=== PATIENT | male | born 1955 | race Caucasian/White ===

== ENCOUNTER 2017-07-12 02:09 | Inpatient (IN) | payer OTHER ==
[2017-07-12] MEDS ORDERED: ALBUTEROL/IPRATROPIUM (NEB) 3 ML AMP HHN ×2 (04:00→04:30)
[2017-07-12] MEDS ORDERED: morphine 2 MG INJ IV (07:00)
[2017-07-12] MEDS ORDERED: ONDANSETRON 4 MG INJ IV (07:00)
[2017-07-12] MEDS ORDERED: NITROGLYCERIN (SL) 0.4 MG TAB SL (07:00)
[2017-07-12] MEDS ORDERED: ACETAMINOPHEN 325 MG TAB PO (07:00)
[2017-07-12] MEDS ORDERED: NACL 0.9% 3 ML SYG IV (07:00)
[2017-07-12 08:13] LABS: ADD MAN DIFF? NO
[2017-07-12 08:15] LABS: WHITE BLOOD COUNT 4.6 10^3/ul (4.8-10.8)
[2017-07-12 08:15] LABS: HEMATOCRIT 37.3 % (42.0-52.0); HEMOGLOBIN 12.5 g/dl (14.0-18.0); LYMPHOCYTES # 0.6 10^3/ul (0.8-2.9); LYMPHOCYTES % 13.9 % (15.0-51.0); MEAN CORPUSCULAR HEMOGLOBIN 30.9 pg (29.0-33.0); MEAN CORPUSCULAR HGB CONC 33.5 g/dl (32.0-37.0); MEAN CORPUSCULAR VOLUME 92.1 fl (82.0-101.0); MEAN PLATELET VOLUME 10.8 fl (7.4-10.4); MONOCYTE # 0.1 10^3/ul (0.3-0.9); MONOCYTES % 2.2 % (0.0-11.0); NEUTROPHIL # 3.9 10^3/ul (1.6-7.5); NEUTROPHILS % 83.7 % (39.0-77.0); PLATELET COUNT 293 10^3/UL (140-415); RED BLOOD COUNT 4.05 10^6/ul (4.70-6.10); RED CELL DISTRIBUTION WIDTH 14.4 % (11.5-14.5)
[2017-07-12 08:45] LABS: ALANINE AMINOTRANSFERASE 34 IU/L (13-69); ALBUMIN 3.8 g/dl (3.3-4.9); ALKALINE PHOSPHATASE 99 IU/L (42-121); ANION GAP 19 (8-16); ASPARTATE AMINO TRANSFERASE 38 IU/L (15-46); BILIRUBIN,INDIRECT 0.3 mg/dl (0-1.1); BILIRUBIN,TOTAL 0.3 mg/dl (0.2-1.3); BLOOD UREA NITROGEN 28 mg/dl (7-20); CALCIUM 8.9 mg/dl (8.4-10.2); CARBON DIOXIDE 20 mmol/L (21-31); CHLORIDE 109 mmol/L (97-110); CHOL/HDL RATIO 2.6 RATIO; CHOLESTEROL 133 mg/dl (100-200); CREATININE 1.34 mg/dl (0.61-1.24); GLUCOSE 184 mg/dl (70-220); HDL CHOLESTEROL 50 mg/dl (30-78); LDL CHOLESTEROL,CALCULATED 66 mg/dl; MAGNESIUM 1.9 mg/dl (1.7-2.5); PHOSPHORUS 3.5 mg/dl (2.5-4.9); POTASSIUM 4.5 mmol/L (3.5-5.1); SODIUM 143 mmol/L (135-144); TOTAL PROTEIN 7.6 g/dl (6.1-8.1); TRIGLYCERIDES 86 mg/dl (0-149)
[2017-07-12 08:55] LABS: HEMOGLOBIN A1C 5.8 % (0-5.9)
[2017-07-12] MEDS: LORAZEPAM 0.5 MG TAB PO ×2 (09:10→18:34)
[2017-07-12] MEDS: ASPIRIN 81 MG TAB PO (09:10)
[2017-07-12] MEDS: MOMETASONE 0.24 GM INHALER INH ×2 (09:11→21:26)
[2017-07-12] MEDS: LISINOPRIL 20 MG TAB PO (09:11)
[2017-07-12] MEDS: PANTOPRAZOLE (EC) 40 MG TAB PO (09:16)
[2017-07-12] MEDS: HEPARIN 5,000 UNIT/0.5 ML VIAL SC ×2 (09:23→21:42)
[2017-07-12] MEDS: TAMSULOSIN (SR) 0.4 MG CAP PO (21:27)
[2017-07-12] MEDS: CEFTRIAXONE 1 GM/50 ML (PMX) 50 ML IVPB (21:50)
[2017-07-12] MEDS: AZITHROMYCIN 500MG/NS (PMX) 250 ML IVPB (22:45)
[2017-07-13] MEDS: METHOCARBAMOL 500 MG TAB PO (00:27)
[2017-07-13] MEDS: LORAZEPAM 0.5 MG TAB PO ×3 (02:01→23:05)
[2017-07-13] MEDS: LORAZEPAM 2 MG INJ IV (06:11)
[2017-07-13] MEDS: SODIUM CHLORIDE 0.9% 500 ML BAG IV (06:11)
[2017-07-13] MEDS: PANTOPRAZOLE (EC) 40 MG TAB PO (06:11)
[2017-07-13] MEDS: PROPRANOLOL 20 MG TAB PO (06:11)
[2017-07-13] MEDS ORDERED: ROCURONIUM 50 MG INJ (07:00)
[2017-07-13] MEDS ORDERED: EPINEPHrine 0.1 MG/ML SYG (07:00)
[2017-07-13] MEDS ORDERED: ADENOSINE 3 MG/ML SYRINGE IV (07:00)
[2017-07-13] MEDS ORDERED: NA BICARBONATE 8.4% 50 ML SYG (07:00)
[2017-07-13] MEDS ORDERED: ATROPINE 1 MG/10 ML SYRINGE (07:00)
[2017-07-13 08:05] LABS: ADD MAN DIFF? NO
[2017-07-13 08:11] LABS: BASOPHILS % 0.1 % (0.0-2.0); EOSINOPHILS % 0.4 % (0.0-7.0); HEMATOCRIT 33.7 % (42.0-52.0); HEMOGLOBIN 11.4 g/dl (14.0-18.0); MEAN CORPUSCULAR HEMOGLOBIN 31.1 pg (29.0-33.0); MEAN CORPUSCULAR HGB CONC 33.8 g/dl (32.0-37.0); MEAN CORPUSCULAR VOLUME 92.1 fl (82.0-101.0); MEAN PLATELET VOLUME 10.9 fl (7.4-10.4); MONOCYTE # 0.6 10^3/ul (0.3-0.9); MONOCYTES % 7.3 % (0.0-11.0); NEUTROPHIL # 5.3 10^3/ul (1.6-7.5); NEUTROPHILS % 66.7 % (39.0-77.0); PLATELET COUNT 270 10^3/UL (140-415); RED BLOOD COUNT 3.66 10^6/ul (4.70-6.10); RED CELL DISTRIBUTION WIDTH 14.1 % (11.5-14.5)
[2017-07-13 08:11] LABS: WHITE BLOOD COUNT 7.9 10^3/ul (4.8-10.8)
[2017-07-13 08:24] LABS: HEMOGLOBIN A1C 5.9 % (0-5.9)
[2017-07-13 08:44] LABS: ALANINE AMINOTRANSFERASE 36 IU/L (13-69); ALBUMIN 3.2 g/dl (3.3-4.9); ALBUMIN/GLOBULIN RATIO 0.91; ALKALINE PHOSPHATASE 86 IU/L (42-121); ANION GAP 16 (8-16); ASPARTATE AMINO TRANSFERASE 29 IU/L (15-46); BILIRUBIN,INDIRECT 0.5 mg/dl (0-1.1); BILIRUBIN,TOTAL 0.5 mg/dl (0.2-1.3); BLOOD UREA NITROGEN 33 mg/dl (7-20); CALCIUM 8.4 mg/dl (8.4-10.2); CARBON DIOXIDE 20 mmol/L (21-31); CHLORIDE 108 mmol/L (97-110); CHOL/HDL RATIO 2.9 RATIO; CHOLESTEROL 115 mg/dl (100-200); CREATININE 1.24 mg/dl (0.61-1.24); GLUCOSE 127 mg/dl (70-220); HDL CHOLESTEROL 39 mg/dl (30-78); LDL CHOLESTEROL,CALCULATED 46 mg/dl; MAGNESIUM 1.9 mg/dl (1.7-2.5); POTASSIUM 3.9 mmol/L (3.5-5.1); SODIUM 140 mmol/L (135-144); TOTAL PROTEIN 6.7 g/dl (6.1-8.1); TRIGLYCERIDES 150 mg/dl (0-149)
[2017-07-13 08:47] LABS: INR 1.05; PARTIAL THROMBOPLASTIN TIME 24.7 Sec (25.0-35.0); PROTIME 13.8 Sec (11.9-14.9); PT RATIO 1.1
[2017-07-13] MEDS: ASPIRIN 81 MG TAB PO (09:00)
[2017-07-13] MEDS: LISINOPRIL 20 MG TAB PO (09:00)
[2017-07-13] MEDS: MOMETASONE 0.24 GM INHALER INH ×2 (09:00→21:44)
[2017-07-13] MEDS: HEPARIN 5,000 UNIT/0.5 ML VIAL SC ×2 (09:00→21:57)
[2017-07-13] MEDS: CEFTRIAXONE 1 GM/50 ML (PMX) 50 ML IVPB (21:43)
[2017-07-13] MEDS: ATORVASTATIN 20 MG TAB PO (21:44)
[2017-07-13] MEDS: TAMSULOSIN (SR) 0.4 MG CAP PO (21:44)
[2017-07-13] MEDS: CHLORDIAZEPOXIDE 25 MG CAP PO (21:45)
[2017-07-13] MEDS: AZITHROMYCIN 500MG/NS (PMX) 250 ML IVPB (23:03)
[2017-07-13] MEDS: AMIODARONE 150MG/D5W BOLUS 100 ML IV (23:30)
[2017-07-13] MEDS ORDERED: AMIODARONE 900 MG in DEXTROSE 5% 482 ML IV (23:40)
[2017-07-14] MEDS ORDERED: LORAZEPAM 2 MG INJ (00:11)
[2017-07-14] MEDS: LORAZEPAM 2 MG INJ IV ×2 (00:30→04:19)
[2017-07-14] MEDS: PROPOFOL 100 ML IV ×4 (01:30→16:54)
[2017-07-14] MEDS: PANTOPRAZOLE (EC) 40 MG TAB PO (02:13)
[2017-07-14] MEDS: SOD CHLORIDE 0.9% 1,000 ML IV ×2 (02:21→08:38)
[2017-07-14] MEDS: NORepinephrine 8MG/250 ML (PMX 250 ML IV (02:22)
[2017-07-14 03:05] LABS: AADO2 Arterial 473.8 mmHg (7.0-24.0); Allen Test ACCEPTAB; Arterial Base Excess -12.6 mmol/L (-3.0-3); Arterial Blood Gas Oxygen Sat 98.8 mmHG (95.0-98.0); Arterial COHb 0.6 % (0.0-3.0); Arterial Fraction of Oxyhgb 97.9 % (93.0-99.0); Arterial HCO3 14.5 mmol/L (22.0-26.0); Arterial MetHb 0.3 % (0.0-1.5); Arterial Total Hemglobin 15.2 g/dl (12.0-18.0); Arterial pCO2 37.2 mmhg (35-45); MODE VENT - AC; Site Right Radial
[2017-07-14 03:12] LABS: Allen Test ACCEPTAB; Arterial Blood Gas Oxygen Sat 98.9 mmHG (95.0-98.0); Arterial COHb 0.3 % (0.0-3.0); Arterial Fraction of Oxyhgb 98.5 % (93.0-99.0); Arterial HCO3 16.1 mmol/L (22.0-26.0); Arterial MetHb 0.1 % (0.0-1.5); Arterial Total Hemglobin 12.8 g/dl (12.0-18.0); Arterial pCO2 23.6 mmhg (35-45); MODE MASK - NRB; Site Right Radial
[2017-07-14] MEDS: VASOPRESSIN 60 UNIT in DEXTROSE 5% 57 ML IV ×2 (03:30→14:30)
[2017-07-14] MEDS ORDERED: DOPamine-D5W 1.6 MG/ML 250 ML (04:10)
[2017-07-14] MEDS: SOD CHLORIDE 0.9% 500 ML IV (04:20)
[2017-07-14] MEDS: PHENYLephrine 40 MG in DEXTROSE 5% 496 ML IV ×3 (04:23→08:36)
[2017-07-14] MEDS: DOPamine-D5W 1.6 MG/ML 250 ML IV ×4 (04:34→23:26)
[2017-07-14] MEDS ORDERED: EPINEPHrine 0.1 MG/ML SYG (04:57)
[2017-07-14] MEDS: EPINEPHRINE IV (05:19)
[2017-07-14] MEDS: SOD CHLORIDE 0.9% IV (05:19)
[2017-07-14 06:04] LABS: ADD MAN DIFF? NO; BASOPHILS % 0.2 % (0.0-2.0); EOSINOPHILS % 0.1 % (0.0-7.0); HEMOGLOBIN 12.7 g/dl (14.0-18.0); LYMPHOCYTES # 1.6 10^3/ul (0.8-2.9); LYMPHOCYTES % 8.8 % (15.0-51.0); MEAN CORPUSCULAR HEMOGLOBIN 30.8 pg (29.0-33.0); MEAN CORPUSCULAR HGB CONC 32.6 g/dl (32.0-37.0); MEAN CORPUSCULAR VOLUME 94.7 fl (82.0-101.0); MEAN PLATELET VOLUME 11.4 fl (7.4-10.4); MONOCYTE # 1.4 10^3/ul (0.3-0.9); MONOCYTES % 7.7 % (0.0-11.0); NEUTROPHIL # 14.4 10^3/ul (1.6-7.5); NEUTROPHILS % 81.3 % (39.0-77.0); NUCLEATED RED BLOOD CELLS% 0.1 /100WBC (0.0-0.0); PLATELET COUNT 215 10^3/UL (140-415); RED BLOOD COUNT 4.12 10^6/ul (4.70-6.10); RED CELL DISTRIBUTION WIDTH 14.2 % (11.5-14.5)
[2017-07-14 06:04] LABS: WHITE BLOOD COUNT 17.7 10^3/ul (4.8-10.8)
[2017-07-14 06:22] LABS: ANION GAP 25 (8-16); BLOOD UREA NITROGEN 38 mg/dl (7-20); CALCIUM 7.2 mg/dl (8.4-10.2); CARBON DIOXIDE 14 mmol/L (21-31); CHLORIDE 109 mmol/L (97-110); CREATININE 1.79 mg/dl (0.61-1.24); GLUCOSE 143 mg/dl (70-220); MAGNESIUM 2.2 mg/dl (1.7-2.5); POTASSIUM 5.1 mmol/L (3.5-5.1); SODIUM 143 mmol/L (135-144)
[2017-07-14 08:36] LABS: AADO2 Arterial 605.3 mmHg (7.0-24.0); Arterial Base Excess -10.9 mmol/L (-3.0-3); Arterial Blood Gas Oxygen Sat 82.9 mmHG (95.0-98.0); Arterial COHb 0.4 % (0.0-3.0); Arterial Fraction of Oxyhgb 82.4 % (93.0-99.0); Arterial HCO3 16.8 mmol/L (22.0-26.0); Arterial MetHb 0.2 % (0.0-1.5); Arterial Total Hemglobin 13.1 g/dl (12.0-18.0); Arterial pCO2 44.3 mmhg (35-45); MODE VENT - AC; Site Right Brachial
[2017-07-14] MEDS: MOMETASONE 0.24 GM INHALER INH ×2 (09:00→20:56)
[2017-07-14] MEDS ORDERED: HEPARIN 1000 UNITS/ML 10 ML INJ IV ×2 (09:00)
[2017-07-14] MEDS: CHLORDIAZEPOXIDE 25 MG CAP PO ×3 (09:00→23:20)
[2017-07-14] MEDS: ASPIRIN 81 MG TAB PO (09:00)
[2017-07-14] MEDS ORDERED: MULTIVITAMINS 10 ML, THIAMINE 100 MG, FOLIC ACID 1 MG in SOD CHLORIDE 0.9% 1,000 ML IVPB (09:00)
[2017-07-14] MEDS: HEPARIN 5,000 UNIT/0.5 ML VIAL SC (09:00)
[2017-07-14] MEDS: LEVOFLOXACIN 500MG/D5W (PMX) 100 ML IVPB (09:17)
[2017-07-14 09:31] LABS: CREATINE KINASE 598 IU/L (23-200)
[2017-07-14 09:34] LABS: LACTIC ACID 4.4 mmol/L (0.5-2.0)
[2017-07-14 09:43] LABS: CK INDEX 1.1
[2017-07-14 09:45] LABS: CK-MB 6.84 ng/ml (0.0-2.4)
[2017-07-14 09:47] LABS: TROPONIN-I 0.548 ng/ml (0.00-0.12)
[2017-07-14] MEDS: NA BICARBONATE 8.4% 50 ML SYG IV (09:54)
[2017-07-14] MEDS: SODIUM BICARBONATE (IV ADD) 100 MEQ in DEXTROSE 5% 1,000 ML IV (12:09)
[2017-07-14 12:13] LABS: ADD MAN DIFF? NO
[2017-07-14 12:18] LABS: WHITE BLOOD COUNT 23.7 10^3/ul (4.8-10.8)
[2017-07-14 12:18] LABS: ABNORMAL IP MESSAGE 1; BASOPHILS % 0.1 % (0.0-2.0); HEMATOCRIT 37.1 % (42.0-52.0); HEMOGLOBIN 12.4 g/dl (14.0-18.0); LYMPHOCYTES # 0.7 10^3/ul (0.8-2.9); LYMPHOCYTES % 2.7 % (15.0-51.0); MEAN CORPUSCULAR HEMOGLOBIN 31.3 pg (29.0-33.0); MEAN CORPUSCULAR HGB CONC 33.4 g/dl (32.0-37.0); MEAN CORPUSCULAR VOLUME 93.7 fl (82.0-101.0); MEAN PLATELET VOLUME 10.7 fl (7.4-10.4); MONOCYTE # 1.1 10^3/ul (0.3-0.9); MONOCYTES % 4.7 % (0.0-11.0); NEUTROPHIL # 21.6 10^3/ul (1.6-7.5); NEUTROPHILS % 91.2 % (39.0-77.0); PLATELET COUNT 223 10^3/UL (140-415); POSITIVE DIFF @See below; RED BLOOD COUNT 3.96 10^6/ul (4.70-6.10); RED CELL DISTRIBUTION WIDTH 13.7 % (11.5-14.5)
[2017-07-14] MEDS: SOD CHLORIDE 0.9% 100 ML (12:25)
[2017-07-14 12:40] LABS: CREATINE KINASE 684 IU/L (23-200)
[2017-07-14 12:48] LABS: PROTIME 26.8 Sec (11.9-14.9); PT RATIO 2.1
[2017-07-14 12:49] LABS: PARTIAL THROMBOPLASTIN TIME 38.1 Sec (25.0-35.0)
[2017-07-14 12:52] LABS: CK INDEX 1.1; CK-MB 7.68 ng/ml (0.0-2.4); TROPONIN-I 0.892 ng/ml (0.00-0.12)
[2017-07-14] MEDS: HEPARIN 1000 UNITS/ML 10 ML INJ IV (13:05)
[2017-07-14] MEDS: HEPARIN 25000 UNITS/250 ML 250 ML IV (13:07)
[2017-07-14] MEDS: PIPER-TAZO 3.375 GM IV (PMX) 100 ML IVPB ×2 (15:21→20:05)
[2017-07-14 19:27] LABS: CREATINE KINASE 771 IU/L (23-200)
[2017-07-14 19:35] LABS: PARTIAL THROMBOPLASTIN TIME 77.7 Sec (25.0-35.0)
[2017-07-14 19:41] LABS: CK INDEX 1.1
[2017-07-14 19:42] LABS: CK-MB 8.26 ng/ml (0.0-2.4)
[2017-07-14] MEDS: TAMSULOSIN (SR) 0.4 MG CAP PO (21:00)
[2017-07-14] MEDS: ATORVASTATIN 20 MG TAB PO (23:20)
[2017-07-15 02:21] LABS: PARTIAL THROMBOPLASTIN TIME 72.2 Sec (25.0-35.0)
[2017-07-15] MEDS: PROPOFOL 100 ML IV ×4 (02:27→20:02)
[2017-07-15] MEDS: VASOPRESSIN 60 UNIT in DEXTROSE 5% 57 ML IV ×2 (02:30→13:43)
[2017-07-15 05:32] LABS: ADD MAN DIFF? NO; BASOPHILS % 0.1 % (0.0-2.0); HEMATOCRIT 33.7 % (42.0-52.0); HEMOGLOBIN 11.4 g/dl (14.0-18.0); LYMPHOCYTES # 1.9 10^3/ul (0.8-2.9); MEAN CORPUSCULAR HEMOGLOBIN 30.7 pg (29.0-33.0); MEAN CORPUSCULAR HGB CONC 33.8 g/dl (32.0-37.0); MEAN CORPUSCULAR VOLUME 90.8 fl (82.0-101.0); MEAN PLATELET VOLUME 11.3 fl (7.4-10.4); MONOCYTE # 0.7 10^3/ul (0.3-0.9); MONOCYTES % 4.8 % (0.0-11.0); NEUTROPHIL # 11.9 10^3/ul (1.6-7.5); NEUTROPHILS % 81.6 % (39.0-77.0); PLATELET COUNT 192 10^3/UL (140-415); RED BLOOD COUNT 3.71 10^6/ul (4.70-6.10); RED CELL DISTRIBUTION WIDTH 14.4 % (11.5-14.5)
[2017-07-15 05:32] LABS: WHITE BLOOD COUNT 14.6 10^3/ul (4.8-10.8)
[2017-07-15] MEDS: LANSOPRAZOLE 30 MG CAP NGT (05:40)
[2017-07-15] MEDS: PIPER-TAZO 3.375 GM IV (PMX) 100 ML IVPB ×3 (05:40→12:26)
[2017-07-15 06:06] LABS: PARTIAL THROMBOPLASTIN TIME 66.7 Sec (25.0-35.0)
[2017-07-15 06:08] LABS: ANION GAP 18 (8-16); BLOOD UREA NITROGEN 56 mg/dl (7-20); CALCIUM 6.3 mg/dl (8.4-10.2); CARBON DIOXIDE 21 mmol/L (21-31); CHLORIDE 99 mmol/L (97-110); CREATININE 3.47 mg/dl (0.61-1.24); GLUCOSE 153 mg/dl (70-220); POTASSIUM 4.3 mmol/L (3.5-5.1); SODIUM 134 mmol/L (135-144)
[2017-07-15 07:39] LABS: AADO2 Arterial 308.5 mmHg (7.0-24.0); Arterial Base Excess -4.4 mmol/L (-3.0-3); Arterial Blood Gas Oxygen Sat 95.7 mmHG (95.0-98.0); Arterial COHb 0.2 % (0.0-3.0); Arterial Fraction of Oxyhgb 95.3 % (93.0-99.0); Arterial HCO3 18.4 mmol/L (22.0-26.0); Arterial MetHb 0.2 % (0.0-1.5); Arterial pCO2 27.4 mmhg (35-45); MODE VENT - AC; Site Right Brachial
[2017-07-15] MEDS: SODIUM BICARBONATE (IV ADD) 100 MEQ in DEXTROSE 5% 1,000 ML IV ×2 (08:30→11:30)
[2017-07-15] MEDS: MOMETASONE 0.24 GM INHALER INH ×2 (09:00→20:35)
[2017-07-15] MEDS: CHLORDIAZEPOXIDE 25 MG CAP PO ×2 (09:44→13:11)
[2017-07-15] MEDS: ASPIRIN 81 MG TAB PO (09:45)
[2017-07-15] MEDS: ENOXAPARIN 30 MG/0.3 ML SYG SC (09:46)
[2017-07-15] MEDS: DOPamine-D5W 1.6 MG/ML 250 ML IV (10:53)
[2017-07-15] MEDS: LINEZOLID 600 MG/D5W (PMX) 300 ML IVPB ×2 (11:21→20:02)
[2017-07-15 11:47] LABS: PARTIAL THROMBOPLASTIN TIME 45.4 Sec (25.0-35.0)
[2017-07-15] MEDS: FUROSEMIDE 40 MG INJ IV (17:56)
[2017-07-15] MEDS: ATORVASTATIN 20 MG TAB PO (20:02)
[2017-07-15] MEDS: TAMSULOSIN (SR) 0.4 MG CAP PO (20:36)
[2017-07-15] MEDS: PIPER-TAZO 2.25 GM (PMX) 50 ML IVPB (21:13)
[2017-07-15] MEDS: AMIODARONE 150MG/D5W BOLUS 100 ML IV (23:19)
[2017-07-15] MEDS: AMIODARONE 900 MG in DEXTROSE 5% 482 ML IV (23:53)
[2017-07-16] MEDS: VASOPRESSIN 60 UNIT in DEXTROSE 5% 57 ML IV ×2 (01:37→14:30)
[2017-07-16 04:57] LABS: ADD MAN DIFF? NO
[2017-07-16 05:02] LABS: BASOPHILS % 0.2 % (0.0-2.0); EOSINOPHILS % 0.3 % (0.0-7.0); HEMATOCRIT 33.8 % (42.0-52.0); HEMOGLOBIN 11.7 g/dl (14.0-18.0); LYMPHOCYTES # 1.3 10^3/ul (0.8-2.9); LYMPHOCYTES % 8.7 % (15.0-51.0); MEAN CORPUSCULAR HEMOGLOBIN 31.1 pg (29.0-33.0); MEAN CORPUSCULAR HGB CONC 34.6 g/dl (32.0-37.0); MEAN CORPUSCULAR VOLUME 89.9 fl (82.0-101.0); MEAN PLATELET VOLUME 11.3 fl (7.4-10.4); MONOCYTE # 0.7 10^3/ul (0.3-0.9); MONOCYTES % 4.6 % (0.0-11.0); NEUTROPHIL # 12.9 10^3/ul (1.6-7.5); NEUTROPHILS % 85.5 % (39.0-77.0); PLATELET COUNT 231 10^3/UL (140-415); RED BLOOD COUNT 3.76 10^6/ul (4.70-6.10); RED CELL DISTRIBUTION WIDTH 14.5 % (11.5-14.5)
[2017-07-16 05:02] LABS: WHITE BLOOD COUNT 15.1 10^3/ul (4.8-10.8)
[2017-07-16 05:25] LABS: ANION GAP 20 (8-16); BLOOD UREA NITROGEN 69 mg/dl (7-20); CALCIUM 6.2 mg/dl (8.4-10.2); CARBON DIOXIDE 21 mmol/L (21-31); CHLORIDE 94 mmol/L (97-110); CREATININE 5.03 mg/dl (0.61-1.24); GLUCOSE 169 mg/dl (70-220); POTASSIUM 3.9 mmol/L (3.5-5.1); SODIUM 131 mmol/L (135-144)
[2017-07-16] MEDS: PIPER-TAZO 2.25 GM (PMX) 50 ML IVPB ×2 (05:26→13:56)
[2017-07-16] MEDS: LANSOPRAZOLE 30 MG CAP NGT (05:26)
[2017-07-16] MEDS: PROPOFOL 100 ML IV ×3 (05:26→14:42)
[2017-07-16] MEDS: SODIUM BICARBONATE (IV ADD) 100 MEQ in DEXTROSE 5% 1,000 ML IV ×2 (05:33→09:25)
[2017-07-16] MEDS: MOMETASONE 0.24 GM INHALER INH ×2 (09:00→21:00)
[2017-07-16 09:02] LABS: AADO2 Arterial 337.2 mmHg (7.0-24.0); Allen Test ACCEPTAB; Arterial Base Excess -4.9 mmol/L (-3.0-3); Arterial Blood Gas Oxygen Sat 82.6 mmHG (95.0-98.0); Arterial COHb 0.3 % (0.0-3.0); Arterial Fraction of Oxyhgb 82.3 % (93.0-99.0); Arterial HCO3 19.1 mmol/L (22.0-26.0); Arterial MetHb 0.1 % (0.0-1.5); Arterial Total Hemglobin 12.6 g/dl (12.0-18.0); Arterial pCO2 32.5 mmhg (35-45); MODE VENT - AC; Site Right Radial
[2017-07-16] MEDS: ASPIRIN 81 MG TAB PO (10:27)
[2017-07-16] MEDS: FUROSEMIDE 40 MG INJ IV (10:27)
[2017-07-16] MEDS: LINEZOLID 600 MG/D5W (PMX) 300 ML IVPB ×2 (10:28→22:45)
[2017-07-16] MEDS: ENOXAPARIN 30 MG/0.3 ML SYG SC (10:33)
[2017-07-16] MEDS: DOPamine-D5W 1.6 MG/ML 250 ML IV (17:40)
[2017-07-16] MEDS: ATORVASTATIN 20 MG TAB PO (22:45)
[2017-07-16] MEDS: TAMSULOSIN (SR) 0.4 MG CAP PO (22:45)
[2017-07-17] MEDS: PROPOFOL 100 ML IV ×2 (01:31→06:21)
[2017-07-17] MEDS: VASOPRESSIN 60 UNIT in DEXTROSE 5% 57 ML IV (02:30)
[2017-07-17] MEDS: PIPER-TAZO 2.25 GM (PMX) 50 ML IVPB ×2 (02:54→05:34)
[2017-07-17] MEDS: LANSOPRAZOLE 30 MG CAP NGT (05:33)
[2017-07-17 05:54] LABS: ADD MAN DIFF? NO
[2017-07-17 06:15] LABS: BASOPHILS % 0.2 % (0.0-2.0); EOSINOPHILS # 0.1 10^3/ul (0.0-0.5); EOSINOPHILS % 0.5 % (0.0-7.0); HEMATOCRIT 31.9 % (42.0-52.0); HEMOGLOBIN 11.3 g/dl (14.0-18.0); LYMPHOCYTES # 0.8 10^3/ul (0.8-2.9); LYMPHOCYTES % 6.5 % (15.0-51.0); MEAN CORPUSCULAR HGB CONC 35.4 g/dl (32.0-37.0); MEAN CORPUSCULAR VOLUME 87.4 fl (82.0-101.0); MEAN PLATELET VOLUME 11.2 fl (7.4-10.4); MONOCYTE # 0.7 10^3/ul (0.3-0.9); MONOCYTES % 5.6 % (0.0-11.0); NEUTROPHIL # 11.2 10^3/ul (1.6-7.5); NEUTROPHILS % 86.6 % (39.0-77.0); PLATELET COUNT 180 10^3/UL (140-415); RED BLOOD COUNT 3.65 10^6/ul (4.70-6.10); RED CELL DISTRIBUTION WIDTH 14.4 % (11.5-14.5)
[2017-07-17 06:48] LABS: ANION GAP 24 (8-16); BLOOD UREA NITROGEN 74 mg/dl (7-20); CARBON DIOXIDE 21 mmol/L (21-31); CHLORIDE 89 mmol/L (97-110); GLUCOSE 114 mg/dl (70-220); POTASSIUM 3.9 mmol/L (3.5-5.1); SODIUM 130 mmol/L (135-144)
[2017-07-17 07:05] LABS: CALCIUM 5.5 mg/dl (8.4-10.2)
[2017-07-17] MEDS ORDERED: CALCIUM GLUCONATE 10% 1 GM in DEXTROSE 5% 100 ML IVPB (08:30)
[2017-07-17] MEDS: SODIUM BICARBONATE (IV ADD) 100 MEQ in DEXTROSE 5% 1,000 ML IV (08:50)
[2017-07-17] MEDS: MOMETASONE 0.24 GM INHALER INH (09:00)
[2017-07-17] MEDS: FUROSEMIDE 40 MG INJ IV (09:00)
[2017-07-17 09:25] LABS: AADO2 Arterial 602.1 mmHg (7.0-24.0); Allen Test ACCEPTAB; Arterial Base Excess -2.5 mmol/L (-3.0-3); Arterial COHb 0.1 % (0.0-3.0); Arterial Fraction of Oxyhgb 93.6 % (93.0-99.0); Arterial HCO3 21.1 mmol/L (22.0-26.0); Arterial MetHb 0.3 % (0.0-1.5); Arterial Total Hemglobin 12.5 g/dl (12.0-18.0); Arterial pCO2 32.8 mmhg (35-45); MODE VENT - AC; Site Right Radial
[2017-07-17] MEDS: AMIODARONE 200 MG TAB GTB (09:27)
[2017-07-17] MEDS: LINEZOLID 600 MG/D5W (PMX) 300 ML IVPB (09:27)
[2017-07-17] MEDS: ASPIRIN 81 MG TAB PO (09:27)
[2017-07-17] MEDS: ENOXAPARIN 30 MG/0.3 ML SYG SC (09:28)
[2017-07-17] MEDS: DEXTROSE 5%-0.9% NACL 1,000 ML IV (11:10)
[2017-07-17] MEDS: FENTAnyl (DRIP) 1000 mcg/100mL 100 ML IV (11:32)
[2017-07-17 11:38] LABS: CREATINE KINASE 297 IU/L (23-200)
[2017-07-17 11:47] LABS: CK INDEX 0.3
[2017-07-17 12:00] LABS: TROPONIN-I 0.475 ng/ml (0.00-0.12)
[2017-07-17] MEDS ORDERED: SODIUM BICARBONATE (IV ADD) 100 MEQ in SOD CHLORIDE 0.9% 1,000 ML IV (12:00)
[2017-07-17] MEDS: DOPamine-D5W 1.6 MG/ML 250 ML IV (12:01)
[2017-07-17] MEDS: morphine (DRIP) 100 MG/100 ML 100 ML IV ×2 (14:23→18:47)
[2017-07-17] MEDS: LORAZEPAM 2 MG INJ IV (14:25)
[2017-07-18] MEDS ORDERED: CLOPIDOGREL 75 MG TAB PO (09:00)
== END 2017-07-18 | disposition expired | DRG 64 ==
LOC: TEL 02:09 → ICU 07-14 00:37 → PP2 07-17 18:05
PROC: 0BH17EZ Insertion of Endotracheal Airway into Trachea, Via Natural or Artificial Opening (ICD-10-PCS; principal; 2017-07-14)
PROC: 5A1945Z Respiratory Ventilation, 24-96 Consecutive Hours (ICD-10-PCS; 2017-07-14)
PROC: 02HV33Z Insertion of Infusion Device into Superior Vena Cava, Percutaneous Approach (ICD-10-PCS; 2017-07-14)
DX: I63.9 Cerebral infarction, unspecified (principal); I21.A1 Myocardial infarction type 2; J18.9 Pneumonia, unspecified organism; J96.91 Respiratory failure, unspecified with hypoxia; G93.40 Encephalopathy, unspecified; A41.9 Sepsis, unspecified organism; R65.21 Severe sepsis with septic shock; I50.23 Acute on chronic systolic (congestive) heart failure; N17.9 Acute kidney failure, unspecified; E87.2 Acidosis; I47.2 Ventricular tachycardia; G93.1 Anoxic brain damage, not elsewhere classified; I46.9 Cardiac arrest, cause unspecified; R57.0 Cardiogenic shock; F29 Unspecified psychosis not due to a substance or known physiological condition; J44.9 Chronic obstructive pulmonary disease, unspecified; F41.9 Anxiety disorder, unspecified; F32.9 Major depressive disorder, single episode, unspecified; F17.200 Nicotine dependence, unspecified, uncomplicated; E87.5 Hyperkalemia; Z87.11 Personal history of peptic ulcer disease; F15.10 Other stimulant abuse, uncomplicated; F10.10 Alcohol abuse, uncomplicated; F14.10 Cocaine abuse, uncomplicated; R47.01 Aphasia; I95.9 Hypotension, unspecified; I48.0 Paroxysmal atrial fibrillation; N40.0 Benign prostatic hyperplasia without lower urinary tract symptoms; I11.0 Hypertensive heart disease with heart failure
CPT/HCPCS: 31500; 36569; 36600; 70552; 71045; 74018; 76937; 80048; 80053; 80061; 82550; 82553; 82803; 82962; 83036; 83605; 83735; 84100; 84484; 85025; 85610; 85730; 87081; 92950; 93005; 93306; 93880; 93922; 94002; 94003; 94770; 97162